=== PATIENT | male | born 1980 | race Caucasian/White ===

== ENCOUNTER 2022-01-09 21:37 | Outpatient (REF) | payer BC, SELFPAY ==
[2022-01-09 18:09] LABS: Abs Immature Grans 0.03 10^3/uL (0.0-0.06); Absolute Basophil Count 0.02 10^3/uL (0.0-0.2); Absolute Eosinophil Count 0.09 10^3/uL (0.0-0.7); Absolute Lymphocyte Count 1.64 10^3/uL (1.2-3.4); Absolute Monocyte Count 0.53 10^3/uL (0.1-0.8); Absolute Neutrophil Count 3.23 10^3/uL (1.2-6.7); Basophils % 0.4; Eosinophils % 1.6; HGB 15.8 g/dL (13.5-17.5); Immature Grans % 0.5; Lymphocytes % 29.6; MCH 31.2 pg (27.0-33.0); MCHC 33.6 % (32.0-36.0); MCV 93 fL (80-95); MPV 10.7 fL (8.0-11.0); Monocytes % 9.6; Neutrophils % 58.3; Platelet Count 236 10^3/uL (130-400); RBC 5.06 10^6/uL (4.36-5.78); RDW 12.3 % (11.8-14.1); RDW-SD 42.2 fL; WBC 5.54 10^3/uL (4.4-10.8)
[2022-01-09 18:19] LABS: AST 34 U/L (15-37); Albumin 4.4 g/dL (3.4-5.0); Alkaline Phosphatase 57 U/L (46-116); Anion Gap 8.6 mmol/L (3-11); BUN 18 mg/dL (7-18); Bilirubin, Total 0.6 mg/dL (0.2-1.0); CO2 28.4 mmol/L (21.0-32.0); Calcium 9.3 mg/dL (8.5-10.1); Calculated LDL 166 mg/dL (<100); Chloride 102 mmol/L (98-107); Cholesterol 261 mg/dL (<200); Estimated GFR 96.97 (mL/min/1.73m2); Glucose 92 mg/dL (74-106); HDL Cholesterol 38 mg/dL (40-60); Potassium 4.3 mmol/L (3.5-5.1); Sodium 139 mmol/L (136-145); TSH 1.44 uIU/mL (0.36-3.74); Total Protein 8.1 g/dL (6.4-8.2); Triglyceride 287 mg/dL (<150)
[2022-01-09 18:28] LABS: ALT 84 U/L (16-63)
== END 2022-01-09 21:38 | disposition home or self-care (01) ==
LOC: NCHCN 21:37
PROVIDERS: Visit Provider Registered Nurse
DX: Z00.00 Encounter for general adult medical examination without abnormal findings (principal); G54.0 Brachial plexus disorders; N28.1 Cyst of kidney, acquired; Z86.39 Personal history of other endocrine, nutritional and metabolic disease; E78.89 Other lipoprotein metabolism disorders
CPT/HCPCS: 80053; 80061; 84443; 85025

== ENCOUNTER 2022-04-04 15:51 | Outpatient (REF) | payer BC, SELFPAY ==
[2022-04-04 21:49] LABS: ALT 58 U/L (16-63); AST 32 U/L (15-37); Albumin 4.2 g/dL (3.4-5.0); Alkaline Phosphatase 68 U/L (46-116); Bilirubin, Direct 0.1 mg/dL (0.0-0.2); Bilirubin, Total 0.2 mg/dL (0.2-1.0); Total Protein 8.1 g/dL (6.4-8.2); Uric Acid 6.2 mg/dL (3.5-7.2)
== END 2022-04-04 15:52 | disposition home or self-care (01) ==
LOC: NCHCN 15:51
PROVIDERS: Visit Provider Registered Nurse
DX: Z86.39 Personal history of other endocrine, nutritional and metabolic disease (principal)
CPT/HCPCS: 80076; 84550

== ENCOUNTER 2022-06-04 13:39 | Outpatient (REF) | payer BC, SELFPAY ==
[2022-06-04 14:34] LABS: Abs Immature Grans 0.02 10^3/uL (0.0-0.06); Absolute Basophil Count 0.02 10^3/uL (0.0-0.2); Absolute Eosinophil Count 0.12 10^3/uL (0.0-0.7); Absolute Lymphocyte Count 1.36 10^3/uL (1.2-3.4); Absolute Monocyte Count 0.38 10^3/uL (0.1-0.8); Basophils % 0.5; Eosinophils % 2.8; HCT 45.7 % (40.0-50.0); HGB 15.1 g/dL (13.5-17.5); Immature Grans % 0.5; Lymphocytes % 31.5; MCH 30.3 pg (27.0-33.0); MCV 92 fL (80-95); MPV 10.3 fL (8.0-11.0); Monocytes % 8.8; Neutrophils % 55.9; Platelet Count 238 10^3/uL (130-400); RBC 4.99 10^6/uL (4.36-5.78); RDW 12.5 % (11.8-14.1); RDW-SD 42.2 fL; WBC 4.32 10^3/uL (4.4-10.8)
[2022-06-04 14:38] LABS: ESR 8 mm/hr (0-15)
[2022-06-04 14:39] LABS: Absolute Neutrophil Count 2.41 10^3/uL (1.2-6.7)
[2022-06-04 14:45] LABS: ALT 82 U/L (16-63); AST 46 U/L (15-37); Albumin 4.4 g/dL (3.4-5.0); Alkaline Phosphatase 59 U/L (46-116); Anion Gap 5.8 mmol/L (3-11); BUN 13 mg/dL (7-18); Bilirubin, Total 0.5 mg/dL (0.2-1.0); CO2 31.2 mmol/L (21.0-32.0); CREATININE 0.9 mg/dL (0.70-1.30); Calcium 9.5 mg/dL (8.5-10.1); Chloride 105 mmol/L (98-107); Estimated GFR 110.04 (mL/min/1.73m2); Glucose 98 mg/dL (74-106); Lipase 57 U/L (16-77); Potassium 4.3 mmol/L (3.5-5.1); Sodium 142 mmol/L (136-145); Total Protein 8.2 g/dL (6.4-8.2)
== END 2022-06-04 13:40 | disposition home or self-care (01) ==
LOC: NCHCN 13:39
PROVIDERS: Visit Provider Family Medicine
DX: R10.9 Unspecified abdominal pain (principal); M79.604 Pain in right leg; M79.605 Pain in left leg; R79.89 Other specified abnormal findings of blood chemistry
CPT/HCPCS: 80053; 83690; 85652; 85025

== ENCOUNTER 2023-02-26 19:20 | Outpatient (REF) | payer BC, SELFPAY ==
[2023-02-26 21:35] LABS: Abs Immature Grans 0.01 10^3/uL (0.0-0.06); Absolute Basophil Count 0.02 10^3/uL (0.0-0.2); Absolute Eosinophil Count 0.07 10^3/uL (0.0-0.7); Absolute Lymphocyte Count 1.48 10^3/uL (1.2-3.4); Absolute Monocyte Count 0.35 10^3/uL (0.1-0.8); Absolute Neutrophil Count 3.89 10^3/uL (1.2-6.7); Basophils % 0.3; Eosinophils % 1.2; HCT 46.9 % (40.0-50.0); HGB 16.3 g/dL (13.5-17.5); Immature Grans % 0.2; Lymphocytes % 25.4; MCH 31.3 pg (27.0-33.0); MCHC 34.8 % (32.0-36.0); MCV 90 fL (80-95); MPV 10.3 fL (8.0-11.0); Neutrophils % 66.9; Platelet Count 272 10^3/uL (130-400); RBC 5.21 10^6/uL (4.36-5.78); RDW-SD 39.7 fL; WBC 5.82 10^3/uL (4.4-10.8)
[2023-02-26 22:27] LABS: ALT 50 U/L (16-63); AST 29 U/L (15-37); Albumin 4.6 g/dL (3.4-5.0); Alkaline Phosphatase 64 U/L (46-116); Anion Gap 10.8 mmol/L (3-11); BUN 13 mg/dL (7-18); Bilirubin, Total 0.6 mg/dL (0.2-1.0); CO2 27.2 mmol/L (21.0-32.0); CREATININE 1.1 mg/dL (0.70-1.30); Calcium 9.7 mg/dL (8.5-10.1); Chloride 104 mmol/L (98-107); Estimated GFR 85.95 (mL/min/1.73m2); Ferritin 453 ng/mL (26-388); Folate 17.8 ng/mL (8.6-20.0); Glucose 100 mg/dL (74-106); Potassium 3.7 mmol/L (3.5-5.1); Sodium 142 mmol/L (136-145); TSH (W/Ref FT4) 0.89 uIU/mL (0.36-3.74); Total Protein 8.4 g/dL (6.4-8.2); Vitamin B12 573 pg/mL (193-986)
== END 2023-02-26 19:21 | disposition home or self-care (01) ==
LOC: NCHCN 19:20
PROVIDERS: Visit Provider Nurse Practitioner Family
DX: E23.0 Hypopituitarism (principal); M85.80 Other specified disorders of bone density and structure, unspecified site; R53.83 Other fatigue; K76.0 Fatty (change of) liver, not elsewhere classified
CPT/HCPCS: 80053; 82306; 82607; 82728; 82746; 84443; 85025

== ENCOUNTER 2023-05-02 09:13 | Outpatient (REF) | payer BC, SELFPAY ==
[2023-05-02 15:41] LABS: FREE T4 0.86 ng/dL (0.76-1.46)
[2023-05-02 22:01] LABS: T3, Total 139 ng/dL (97-169)
== END 2023-05-02 09:14 | disposition home or self-care (01) ==
LOC: LBN 09:13
PROVIDERS: PCP Nurse Practitioner Family; Visit Provider Internal Medicine Endocrinology, Diabetes & Metabolism
DX: E04.2 Nontoxic multinodular goiter (principal)
CPT/HCPCS: 84439; 84443; 84480

== ENCOUNTER 2023-08-18 07:49 | Outpatient (REF) | payer BC, SELFPAY ==
[2023-08-18 15:29] LABS: HCT 45.3 % (40.0-50.0); HGB 15.2 g/dL (13.5-17.5); MCH 30.8 pg (27.0-33.0); MCHC 33.6 % (32.0-36.0); MCV 92 fL (80-95); MPV 10.4 fL (8.0-11.0); Platelet Count 242 10^3/uL (130-400); RBC 4.93 10^6/uL (4.36-5.78); RDW 12.5 % (11.8-14.1); RDW-SD 41.6 fL; WBC 5.09 10^3/uL (4.4-10.8)
[2023-08-18 15:59] LABS: ALT 51 U/L (16-63); AST 22 U/L (15-37); Albumin 3.9 g/dL (3.4-5.0); Alkaline Phosphatase 63 U/L (46-116); Anion Gap 6.3 mmol/L (3-11); BUN 12 mg/dL (7-18); Bilirubin, Total 0.5 mg/dL (0.2-1.0); CO2 28.7 mmol/L (21.0-32.0); Calcium 9.2 mg/dL (8.5-10.1); Calculated LDL 147 mg/dL (<100); Chloride 107 mmol/L (98-107); Cholesterol 232 mg/dL (<200); Estimated GFR 96.37 (mL/min/1.73m2); Ferritin 410 ng/mL (26-388); Glucose 89 mg/dL (74-106); HDL Cholesterol 37 mg/dL (40-60); Potassium 4.3 mmol/L (3.5-5.1); Sodium 142 mmol/L (136-145); Total Protein 7.6 g/dL (6.4-8.2); Triglyceride 240 mg/dL (<150)
== END 2023-08-18 07:50 | disposition home or self-care (01) ==
LOC: NCHCN 07:49
PROVIDERS: PCP Nurse Practitioner Family; Visit Provider Nurse Practitioner Family
DX: K76.89 Other specified diseases of liver (principal); R53.83 Other fatigue; E78.5 Hyperlipidemia, unspecified
CPT/HCPCS: 80053; 80061; 85027; 82728

== ENCOUNTER 2024-02-24 19:37 | Outpatient (REF) | payer BC, SELFPAY ==
[2024-02-24 15:18] LABS: HCT 45.7 % (40.0-50.0); HGB 15.3 g/dL (13.5-17.5); MCH 31.2 pg (27.0-33.0); MCHC 33.5 % (32.0-36.0); MCV 93 fL (80-95); MPV 10.5 fL (8.0-11.0); Platelet Count 246 10^3/uL (130-400); RDW 12.4 % (11.8-14.1); RDW-SD 42.5 fL; WBC 4.98 10^3/uL (4.4-10.8)
[2024-02-24 15:52] LABS: ALT 54 U/L (16-63); AST 33 U/L (15-37); Albumin 4.3 g/dL (3.4-5.0); Alkaline Phosphatase 71 U/L (46-116); Anion Gap 7.5 mmol/L (3-11); BUN 17 mg/dL (7-18); Bilirubin, Total 0.83 mg/dL (0.2-1.0); CO2 27.5 mmol/L (21.0-32.0); Calcium 9.3 mg/dL (8.5-10.1); Calculated LDL 161 mg/dL (<100); Chloride 107 mmol/L (98-107); Cholesterol 248 mg/dL (<200); Estimated GFR 95.77 (mL/min/1.73m2); Ferritin 426 ng/mL (26-388); Glucose 91 mg/dL (74-106); HDL Cholesterol 45 mg/dL (40-60); Potassium 4.2 mmol/L (3.5-5.1); Sodium 142 mmol/L (136-145); TSH 1.12 uIU/mL (0.36-3.74); Total Protein 8.2 g/dL (6.4-8.2); Triglyceride 210 mg/dL (<150)
[2024-02-24 16:01] LABS: Iron 109 ug/dL (65-175); Total Iron Binding Capacity 283 ug/dL (250-450); Transferrin Sat 39 % (20-55)
[2024-02-24 16:10] LABS: FREE T4 0.84 ng/dL (0.76-1.46)
[2024-02-24 23:03] LABS: T3, Total 166 ng/dL (97-169)
== END 2024-02-24 19:38 | disposition home or self-care (01) ==
LOC: NCHCN 19:37
PROVIDERS: PCP Nurse Practitioner Family; Visit Provider Nurse Practitioner Family
DX: K76.89 Other specified diseases of liver (principal); E04.1 Nontoxic single thyroid nodule; E78.5 Hyperlipidemia, unspecified
CPT/HCPCS: 80053; 80061; 85027; 82728; 83540; 83550; 84439; 84443; 84480

== ENCOUNTER 2024-05-25 12:15 | Outpatient (REF) | payer BC, SELFPAY ==
[2024-05-25 15:40] LABS: Vitamin D 25 Total 26.7 ng/mL (30-100)
[2024-06-02 15:28] LABS: Testosterone, Free 9.41 ng/dL (4.46-17.1); Testosterone, Total 368 ng/dL (240-950)
== END 2024-05-25 12:16 | disposition home or self-care (01) ==
LOC: NCHCN 12:15
PROVIDERS: PCP Nurse Practitioner Family; Visit Provider Nurse Practitioner Family
DX: M85.89 Other specified disorders of bone density and structure, multiple sites (principal)
CPT/HCPCS: 82306; 84402; 84403

== ENCOUNTER 2025-04-18 12:26 | Outpatient (REF) | payer BC, SELFPAY ==
[2025-04-18 17:14] LABS: HCT 45.1 % (40.0-50.0); HGB 14.8 g/dL (13.5-17.5); MCH 30.2 pg (27.0-33.0); MCHC 32.8 % (32.0-36.0); MCV 92 fL (80-95); MPV 10.5 fL (8.0-11.0); Platelet Count 211 10^3/uL (130-400); RBC 4.90 10^6/uL (4.36-5.78); RDW 12.0 % (11.8-14.1); RDW-SD 40.8 fL; WBC 6.93 10^3/uL (4.4-10.8)
[2025-04-18 17:25] LABS: Iron 51 ug/dL (65-175); Total Iron Binding Capacity 269 ug/dL (250-425); Transferrin Sat 19 % (20-55)
[2025-04-18 17:29] LABS: Hemoglobin A1C 5.1 % (<5.7)
[2025-04-18 17:30] LABS: Ferritin 412 ng/mL (11-307); Vitamin D 25 Total 49 ng/mL (30-100)
[2025-04-18 17:31] LABS: TSH (W/Ref FT4) 1.18 uIU/mL (0.55-4.78)
[2025-04-18 18:04] LABS: ALT 40 U/L (10-49); AST 25 U/L (<34); Albumin 4.5 g/dL (3.2-5.0); Alkaline Phosphatase 63 U/L (46-116); Anion Gap 7.4 mmol/L (3-11); BUN 13 mg/dL (9-23); Bilirubin, Total 0.6 mg/dL (0.2-1.2); CO2 28.6 mmol/L (20.0-31.0); Calcium 9.2 mg/dL (8.3-10.6); Chloride 104 mmol/L (98-107); Cholesterol 175 mg/dL (<200); Glucose 98 mg/dL (74-106); HDL Cholesterol 29 mg/dL (>40); Potassium 4.2 mmol/L (3.5-5.1); Sodium 140 mmol/L (136-145); Total Protein 7.9 g/dL (5.7-8.2)
[2025-04-22 13:26] LABS: Apolipoprotein A1, S 110 mg/dL (>=120); Apolipoprotein B, S 108 mg/dL (See Comment); Apolipoprotein B/A 1 ratio 1.0 (See Comment)
== END 2025-04-18 12:27 | disposition home or self-care (01) ==
LOC: NCHCN 12:26
PROVIDERS: PCP Nurse Practitioner Family; Visit Provider Nurse Practitioner Family
DX: M85.80 Other specified disorders of bone density and structure, unspecified site (principal); Z13.1 Encounter for screening for diabetes mellitus; E04.2 Nontoxic multinodular goiter; R77.8 Other specified abnormalities of plasma proteins; E78.5 Hyperlipidemia, unspecified
CPT/HCPCS: 80053; 80061; 82172; 82306; 85027; 82728; 83036; 83540; 83550; 84443